=== PATIENT | female | born 1980 | race Caucasian/White ===

== ENCOUNTER 2023-06-23 07:36 | Outpatient (CLI) | payer BC, SELFPAY ==
--- NOTE | 2023-06-23 08:49 | W.ANESCHARGE ---
Anesthesia Charges Start Date/Time Anesthesia Start Date: 06/23/23 Anesthesia Start Time: 08:22 Stop Date/Time Anesthesia Stop Date: 06/23/23 Anesthesia Stop Time: 08:47
--- NOTE | 2023-06-23 12:08 | W.ANESCHARGE ---
Anesthesia Charges Start Date/Time Anesthesia Start Date: 06/23/23 Anesthesia Start Time: 08:22 Stop Date/Time Anesthesia Stop Date: 06/23/23 Anesthesia Stop Time: 08:47
== END 2023-06-23 07:37 | disposition home or self-care (01) ==
PROVIDERS: PCP Family Medicine; Visit Provider Internal Medicine Gastroenterology
DX: K63.5 Polyp of colon (principal); K57.30 Diverticulosis of large intestine without perforation or abscess without bleeding; K63.89 Other specified diseases of intestine; Z86.010 Personal history of colon polyps
CPT/HCPCS: 00811; 45380; 88305; J2704